=== PATIENT | female | born 1940 | race Caucasian/White ===

== ENCOUNTER 2018-02-20 10:11 | Emergency (ER) | payer OTHER, MEDICARE ==
[~2018-02-20] VITALS: Ht 162.6 cm; Wt 72.6 kg
[~2018-02-20 10:11] MED LIST: ADVIL PM CAPLE1 EACH PO; FISH OIL 1,2001 EAC2 PO; GLUCOSAMINE &1 EAC1 PO; LEVOTHYROXINE100 MC1 PO; MULTI-DAY VITA1 EACH PO; SIMVASTATIN40 M1 PO; VITAMIN B COMP1 EACH PO; VITAMIN B-121000 MC3 PO
[2018-02-20 10:20] VITALS: BP 165/78
--- NOTE | 2018-02-20 10:56 | ED EAR COMPLAINT ---
History of Present Illness General Chief Complaint: Ear Complaints Stated Complaint: ? OBJECT IN RT EAR Source: patient Exam Limitations: no limitations Vital Signs & Intake/Output Vital Signs & Intake/Output ED Intake and Output 02/21 0000 02/20 1200 Intake Total Output Total Balance Patient 160 lb Weight Weight Reported by Patient Measurement Method Allergies Coded Allergies: No Known Allergies (12/11/15) Reconcile Medications Cyanocobalamin (Vitamin B-12) (Unknown Strength) TABLET (Unknown Dose) PO DAILY SUPPLEMENT (Reported) Gluc 2KCL/Chondr/Chase Hy/Hy AC (Glucosamine & Chondroitin Cap) 1 EACH CAPSULE 1 CAP PO DAILY SUPPLEMENT (Reported) Ibuprofen/Diphenhydramine Cit (Advil Pm Caplet) 1 EACH TABLET 2 TAB PO QPM SLEEP (Reported) Levothyroxine Sodium 100 MCG TABLET 1 TAB PO DAILY THYROID (Reported) Multivitamin (Multi-Day Vitamins) 1 EACH TABLET 1 TAB PO DAILY SUPPLEMENT ( Reported) Pray-3S/Dha/Epa/Fish Oil (Fish Oil 1,200 MG Softgel) (Unknown Strength) CAPSULE (Unknown Dose) PO DAILY SUPPLEMENT (Reported) Simvastatin (Simvastatin*) 40 MG TABLET 1 TAB PO QPM CHOLESTEROL (Reported) Vitamin B Complex 1 EACH CAPSULE 1 CAP PO DAILY SUPPLEMENT (Reported) Triage Note: TRIAGE: 77 Y/O FEMALE PRESENTS C/O ?FOREIGN BODY IN EAR ON THURSDAY. "THEY ATTEMPTED TO FLUSH HER EAR ON THURSDAY. NOTHING CAME OUT. THEY THINK I HAD AN INFECTION, TOO. THEY TOLD ME TO TRY THE EAR WAX REMOVER DROPS WELL." HAS COTTON BALL IN PLACE SINCE. Triage Nurses Notes Reviewed? yes Onset: Abrupt Duration: week(s): (2) Timing: recent history Injury Environment: home No Modifying Factors: none HPI: 77-year-old female comes into the emergency room for further evaluation of fullness to right ear. Denies any pain. Denies any discharge. She reports that she had her ears cleaned out 2 times. Denies any fever chills vomiting. Denies any hearing loss. Denies any other associated symptoms. (Gurwinder MAJANO,Bradley) Past History Travel History Traveled to [place] past 21 day No Medical History Any Pertinent Medical History? see below for history Neurological: NONE EENT: NONE Cardiovascular: hyperlipidemia Respiratory: NONE Gastrointestinal: NONE Hepatic: NONE Renal: NONE Musculoskeletal: NONE Psychiatric: NONE Endocrine: hypothyroidism Blood Disorders: NONE Cancer(s): NONE [facility]/Reproductive: NONE Surgical History Surgical History: non-contributory Psychosocial History What is your primary language Bangladeshi Tobacco Use: Never used ETOH Use: denies use Illicit Drug Use: denies illicit drug use Family History Hx Contributory? No (Bradley Nielsen) Review of Systems Review of Systems Constitutional: Reports: no symptoms. EENTM: Reports: see HPI. Respiratory: Reports: no symptoms. Cardiovascular: Reports: no symptoms. GI: Reports: no symptoms. Genitourinary: Reports: no symptoms. Musculoskeletal: Reports: no symptoms. Skin: Reports: no symptoms. Neurological/Psychological: Reports: no symptoms. Hematologic/Endocrine: Reports: no symptoms. Immunologic/Allergic: Reports: no symptoms. All Other Systems: Reviewed and Negative (Bradley Nielsen) Physical Exam Physical Exam General Appearance: well developed/nourished, mild distress Head: atraumatic Eyes: Bilateral: normal appearance. Ears: Bilateral: canal normal, Tympanic normal. Nose: normal inspection Mouth/Throat: normal mouth inspection Neck: normal inspection Cardiovascular/Respiratory: no respiratory distress Back: normal inspection Neurologic/Psych: awake, alert, oriented x 3, normal mood/affect Skin: intact, normal color, warm/dry (Bradley Nielsen) Progress Differential Diagnoses I considered the following diagnoses in my evaluation of the patient: Otitis externa, otitis media, cerumen impaction, Plan of Care: 02/20/2018 11:27:42 AM Patient clinically looks well. Patient is no apparent distress. Patient is nontoxic-appearing. Symptoms are unclear at this time. The inner ear appears to be normal with no cerumen impaction or foreign body or signs of infection. Possible eustachian tube dysfunction. Follow-up with PCP or ear nose and throat doctor. Return if any concerns worsening symptoms. Initial ED EKG: none (Bradley Nielsen) Departure Departure Disposition: HOME OR SELF CARE Condition: Stable Clinical Impression Primary Impression: Sensation of fullness in right ear Referrals: Eliud MENDOZA,Brando Brito (PCP/Family) Additional Instructions: Continue taking eardrops. Follow-up with your doctor if not better in 7-10 days. return if any other concerns worsening symptoms. Please go over all results of today's visit with your primary care doctor. Contact your primary care doctor to let them know you were here in the emergency room. There may be nonspecific findings which may not be related to your visit today here in the emergency room but may require further evaluation and chronic monitoring by your primary care doctor. If you had a laceration today the chance of foreign body always remains. You should follow-up with your primary care doctor for recheck in 3-5 days for a wound check. If you had an x-ray done there is a chance that a fracture could have been missed on initial read and you should follow-up with your primary care doctor for repeat x-rays if symptoms persist. If your blood pressure was elevated here in the emergency room please have rechecked by [facility] primary care doctor within the next 48. If you were prescribed a narcotic here in the emergency room or any type of controlled substances you're not allowed to drive while taking this medication or operate any type of heavy machinery. Narcotics can make you feel lightheaded dizziness nausea and can cause constipation. You may need to medicinal plant picker a stool softener. Thank you for choosing emergency room. Please return to the emergency room immediately if you have any other concerns worsening of symptoms. Departure Forms: Customer Survey General Discharge Information (Bradley Nielsen) PA/ACUPUNCTURE PHYSICIAN Co-Sign Statement Statement: ED Attending supervision documentation- [] I saw and evaluated the patient. I have also reviewed all the pertinent lab results and diagnostic results. I agree with the findings and the plan of care as documented in the PA's/ACUPUNCTURE PHYSICIAN's documentation. [x] I have reviewed the ED Record and agree with the PA's/ACUPUNCTURE PHYSICIAN's documentation. [] Additions or exceptions (if any) to the PAs/ACUPUNCTURE PHYSICIAN's note and plan are summarized below: [] (Lazarus MENDOZA,[facility])
== END 2018-02-20 11:03 ==
LOC: ERH 10:11
DX: H93.91 Unspecified disorder of right ear (principal)
CPT/HCPCS: 99282